=== PATIENT | female | born 1995 | race Two or more races ===

== ENCOUNTER → 2020-12-20 | Emergency (ER) | payer MEDICAID, OTHER ==
[~2020-12-20] VITALS: Ht 160 cm; Wt 49.9 kg
[2020-12-20 21:19] VITALS: BP 118/84
== END | disposition left against medical advice (07) ==
LOC: ER 20:40
DX: M54.2 Cervicalgia (principal); M54.9 Dorsalgia, unspecified; V49.69XA Unspecified car occupant injured in collision with other motor vehicles in traffic accident, initial encounter; Y93.89 Activity, other specified; Y92.410 Unspecified street and highway as the place of occurrence of the external cause; Y99.8 Other external cause status